=== PATIENT | female | born 1945 | race Caucasian/White ===

== ENCOUNTER 2022-02-02 09:51 | Emergency (ER) | payer MEDICARE, SELFPAY ==
[2022-02-02 10:17] VITALS: BP 174/77; PULSE 68; RESP 15; TEMP 36.6; O2SAT 96; BMI 28.4
--- NOTE | 2022-02-02 10:47 | XR_ITS ---
WS: [id number] Exam: XR hip RT 2-3V wo/w pel* [id number] Date/Time of Exam: 02/02/2022 10:49 AM Reason For Exam: pain; get one view pelvis too please No fracture or dislocation. Mild DJD of the joint compartment. Osteopenia. The pelvis is intact. XR/XR hip RT 2-3V wo/w pel* [id number] IMPRESSION: 1. Mild DJD and osteopenia. 2. No fracture or other significant finding.
--- NOTE | 2022-02-02 10:48 | W.ED.EXTPRO ---
HPI - Extremity Problem General: Chief complaint: General Medical Stated complaint: Hip pain Time Seen by Provider: 02/02/22 10:26 Source: patient and family () Mode of arrival: wheelchair Limitations: no limitations History of Present Illness: Patient is a 76-year-old female presents to ED today along with her for concerns of right hip pain. Patient tells me pain initially began 2 months ago after she was reaching down and picking up one of her grandchildren. Patient states since onset she has had fairly constant pain with waxing and waning severity. She states pain is localized to the hip joint does not complain of any radicular symptoms to her lower extremity. Patient does not complain of lower back pain. She does not complain of any numbness, tingling, loss of sensation, muscle weakness or atrophy to the lower leg. She has not noticed any coolness/pallor to the extremity. Patient states pain seems to be worse with weight bearing and walking for long periods of time. She is able to bear weight without assistance. Patient states she was initially seen at [facility] and had x-rays performed which were negative. She followed up with her PCP Dr. Norris and states that he pretty much brushed me off . Patient states pain does improve when she takes OTC Tylenol and Advil. He has tried tramadol for the pain but does not like the side effects. She feels like muscle relaxers made no difference. During re-examination patient tells me that she has actually had similar intermittent pain in that hip for several years. She states normally pain will last a few weeks before subsiding on its own and was mainly concerned today because hip pain has been fairly constant over the past 2 months. Complaint: joint pain Onset (ago): month(s) Pain Consistency: constant Location: right and lower extremity Radiation: none Relieving factors: immobilization Exacerbating factors: weight bearing and walking Associated symptoms: Reports no associated symptoms; Deny chest pain, fever(s) or rash Review of Systems Const: Denies: fever(s), chills, body aches, fatigue or malaise Card: Denies: chest pain Resp: Denies: dyspnea GI: Denies: abdominal pain : Denies: flank pain or dysuria Musc: Reports: joint pain (R hip); Denies: neck pain, back pain, extremity pain, extremity swelling, joint swelling, joint redness, joint warmth, joint stiffness, muscle cramps or muscle weakness Skin/Breast: Denies: rash Neuro: Denies: headache(s), numbness in extremities, weakness in extremities or sensory changes Physical Exam Const: COMMON NORMALS: no acute distress, patient oriented x3, no limitations and alert GENERAL APPEARANCE: cooperative ORIENTATION/CONSCIOUSNESS: Yes awake, Yes oriented to person, Yes oriented to place and Yes oriented to time HENMT: COMMON NORMALS: normocephalic and atraumatic HEAD & SCALP: normal to inspection, normocephalic and atraumatic GI: COMMON NORMALS: Normal to inspection, nondistended, normoactive bowel sounds present, Soft to palpation and non-tender PALPATION: Yes Soft to palpation : COMMON NORMALS: Yes no CVA tenderness BLADDER/KIDNEY EXAM: Yes no CVA tenderness Back/Pelvis: COMMON NORMALS: no CVA tenderness, thoracic and lumbar spine normal to inspection, no thoracic nor lumbar tenderness, thoraco-lumbar ROM normal and straight leg raise negative bilaterally Extremity: COMMON NORMALS: capillary refill normal, no joint enlargement, no clubbing, cyanosis or edema, no calf tenderness and no pedal edema GENERAL: Yes normal exam except as noted RIGHT LOWER EXTREMITY: Yes hip joint Right hip: Yes inspection (normal), Yes palpation (TTP posteriolateral ) and Yes neurovascular exam (normal) Neuro: COMMON NORMALS: patient oriented x3, moves all extremities, no focal motor deficits, no sensory deficits noted and gait normal SENSORIUM/ORIENTATION: Yes alert, Yes oriented to person, Yes oriented to place and Yes oriented to time Skin: COMMON NORMALS: no rashes or lesions noted GENERAL SKIN EXAM: no rashes or lesions noted Course Vital Signs: Vital signs: Vital Signs Temperature 97.8 F 02/02/22 10:17 Pulse Rate 71 02/02/22 11:05 Respiratory Rate 16 02/02/22 11:00 Blood Pressure 174/63 02/02/22 11:05 Pulse Oximetry 96 02/02/22 11:05 Oxygen Delivery Me thod 02/02/22 11:05 MDM - Extremity (Nontraumatic) Medical Decision Making Patient's history and physical exam I do not have any concern for aortoiliac insufficiency, septic arthritis, or lumbosacral radiculopathy as etiologies for patient's pain. Discomfort could be secondary to osteoarthritis, trochanteric pain syndrome, hip impingement, etc. patient states she does have an email deployment specialist that she sees in [place]. I would recommend following up with him for further evaluation. We also discussed possible physical therapy states she will speak to email deployment specialist to see if he feels this is appropriate. Lab Data Radiology Impressions Hip/Pelvis X-Ray 02/02/22 10:47 IMPRESSION: 1. Mild DJD and osteopenia. 2. No fracture or other significant finding. Discharge Plan Discharge Patient Disposition: Home Clinical Impression: Pain in right hip Condition: Stable Prescriptions: New Medrol (Reji) 4 mg tablets,dose pack See Rx Instructions .ROUTE .COMPLEX Qty: 21 0RF Rx Instructions: orally per package directions No Action multivitamin Tablet 1 tab PO DAILY zinc acetate 50 mg (zinc) Capsule 50 mg PO DAILY chlorthalidone 25 mg tablet 25 mg PO DAILY Tylenol Extra Strength 500 mg Tablet 1,000 mg PO DAILY PRN (Reason: Pain) Vitamin B-12 500 mcg Tablet 500 mcg PO DAILY metoprolol tartrate 50 mg tablet 50 mg PO BID ibuprofen 200 mg Tablet 800 mg PO DAILY PRN (Reason: Pain) Vitamin D3 25 mcg (1,000 unit) Capsule 25 mcg PO DAILY Elderberry 200 mg Capsule 200 mg PO DAILY Discharge Orders: Discharge ED (Routine); Ordered 02/02/22 Ordered By: Nelli Penn Referrals: Dominik Garzon [Primary Care Provider] - Coding Level of Care Code ED Legal Administrative Secretary for Chg Fwd Exam Expanded Problem Focused
[2022-02-02 11:00] VITALS: RESP 16
[2022-02-02] MEDS: dexamethasone 10 mg/mL INJ 8 MG IM (11:00)
[2022-02-02] MEDS: morphine 4 mg/mL SDV 1 mL IM (11:00)
[2022-02-02 11:05] VITALS: BP 174/63; PULSE 71; O2SAT 96
== END 2022-02-02 12:04 | disposition home or self-care (01) ==
PROVIDERS: Emergency Provider Physician Assistant; PCP Family Medicine
DX: M25.551 Pain in right hip (principal)
CPT/HCPCS: 73502; 96372; 99284; J1100; J2270